=== PATIENT | female | born 1985 | race American Indian/Alaskan Native ===

== ENCOUNTER 2018-08-17 09:07 | Emergency (ER) | payer OTHER ==
[~2018-08-17] VITALS: Ht 165.1 cm; Wt 54.9 kg
[~2018-08-17 09:07] MED LIST: OMEGA-31000 MG; PRENATAL CAPLE1 EACH; VITAMIN C100 MG
== END 2018-08-17 19:13 | disposition home or self-care (01) ==
LOC: ER 09:07
DX: R60.0 Localized edema (principal); L03.211 Cellulitis of face

== ENCOUNTER 2018-08-19 09:30 | Emergency (ER) | payer OTHER ==
[~2018-08-19] VITALS: Ht 167.6 cm; Wt 56.7 kg
[2018-08-19] MEDS ORDERED: MEDROLPACK PO (16:03)
== END 2018-08-19 16:05 | disposition home or self-care (01) ==
LOC: ER 09:30
DX: L03.211 Cellulitis of face (principal); R60.0 Localized edema; Z33.1 Pregnant state, incidental